=== PATIENT | female | born 1980 | race American Indian/Alaskan Native ===

== ENCOUNTER 2016-12-05 21:37 | Emergency (ER) | payer SELFPAY ==
[2016-12-06 01:56] VITALS: BP 148/88
--- NOTE | 2016-12-06 02:00 | XRay Report ---
FINAL REPORT EXAM: XR ANKLE 2V RT HISTORY: injury COMPARISON: None available. FINDINGS: Two views of right ankle obtained. Ankle mortise is preserved. Mild hypertrophic spurring of the distal tibia. There are small well corticated bony fragments adjacent to the medial malleolus compatible with remote avulsive injury. Small plantar calcaneal spur. No acute fracture dislocation. IMPRESSION: No acute bony abnormality. Mild degenerative changes likely posttraumatic in etiology. Small plantar calcaneal spur.
[2016-12-06] MEDS ORDERED: MOTRIN PO ONE (02:43)
[2016-12-06] MEDS ORDERED: FLEXERIL PO ONE (02:43)
--- NOTE | 2016-12-06 02:44 | Emergency Department Report ---
HPI - General Chief Complaint: Extremity Injury, Lower Time Seen by Provider: 12/06/16 01:44 - HPI HPI: Patient is a 35-year-old female who presents to ED complaining of right ankle pain 1 day. Patient states she was coming down some steps earlier today and tripped due to loss of her stepping and tripped down 3 or 4 steps. She numbness probably in, localized, 6 out of 10 intensity pain to the right ankle Patient denies fever/chills/nausea/vomiting/any other problems. ED Past Medical Hx - Past Medical History Hx Hypertension: Yes Hx Diabetes: Yes (oral meds) Hx Headaches / Migraines: Yes Hx Psychiatric Treatment: Yes (anxiety) Hx HIV: No Additional medical history: neuropathy, diabetic gastroparesis. ANEMIA. CARPAL TUNNEL. - Surgical History Additional Surgical History: D & C. LEFT GREAT TOE SURGERY - Social History Smoking Status: Current Every Day Smoker Substance Use Type: None - Medications Home Medications: Home Medications Medication Instructions Recorded Confirmed Last Taken Type Albuterol Sulfate [Ventolin HFA] 2 puff IH Q4H PRN #1 hfa.aer.ad 02/07/1403/13/15 Rx Ciprofloxacin HCl [Cipro] 500 mg PO BID #28 tablet 03/16/15 02/27/16 Unknown Rx Sulfamethoxazole/Trimethoprim 1 each PO BID #28 tablet 03/16/15 02/27/16 Unknown Rx [Bactrim Ds] oxyCODONE /ACETAMINOPHEN [Percocet 1 tab PO Q6H PRN #30 tablet 03/16/15 Unknown Rx 5/325 mg] Butalb/Acetamin/Caff 50-325-40 1 tab PO Q6HR PRN #30 tab 06/29/15 02/27/16 Unknown Rx [Fioricet] metFORMIN [Glucophage] 850 mg PO BID #60 tablet 06/29/15 02/27/16 Unknown Rx Docusate Sodium [Colace] 100 mg PO BID PRN #30 capsule 01/20/16 02/27/16 Unknown Rx Ferrous Sulfate [Feosol 325 MG tab] 325 mg PO QDAY #30 tablet 01/20/16 02/27/16 Unknown Rx HYDROcodone/APAP 5-325 [[place] 1 each PO Q6HR PRN #20 tablet 01/20/16 02/27/16 Unknown Rx 5/325] Ibuprofen [Motrin 800 MG tab] 800 mg PO Q8HR PRN #30 tablet 01/20/16 02/27/16 Unknown Rx Cephalexin [Keflex] 500 mg PO Q12HR #14 cap 04/20/16 Unknown Rx Sulfamethoxazole/Trimethoprim 1 each PO BID #14 tablet 04/20/16 Unknown Rx [Bactrim DS TAB] traMADol [Ultram] 50 mg PO Q4HR PRN #15 tablet 04/20/16 Unknown Rx Cyclobenzaprine [Flexeril 10 MG 10 mg PO QHS #24 tablet 12/06/16 Unknown Rx TAB] Ibuprofen [Motrin 800 MG tab] 800 mg PO TID #30 tablet 12/06/16 Unknown Rx ED Review of Systems ROS: Stated complaint: RT ANKLE PAIN/FALL Other details as noted in HPI Constitutional: denies: chills, fever Eyes: denies: eye pain, eye discharge, vision change ENT: denies: ear pain, throat pain Respiratory: denies: cough, shortness of breath, wheezing Cardiovascular: denies: chest pain, palpitations Endocrine: no symptoms reported Gastrointestinal: denies: abdominal pain, nausea, diarrhea Genitourinary: denies: urgency, dysuria, discharge Musculoskeletal: denies: back pain, joint swelling, arthralgia Skin: denies: rash, lesions Neurological: denies: headache, weakness, paresthesias Psychiatric: denies: anxiety, depression Hematological/Lymphatic: denies: easy bleeding, easy bruising Physical Exam - Physical Exam Vital Signs: Vital Signs 12/05/16 12/06/16 22:00 01:40 Temperature 98.6 F 97.9 F Pulse Rate 98 H 91 H Respiratory 18 18 Rate Blood Pressure 143/89 Blood Pressure 148/88 [Right] O2 Sat by Pulse 100 98 Oximetry Physical Exam: GENERAL: Alert and oriented x3, no apparent distress, Normal Gait, atraumatic. HEAD: Head is normocephalic and a-traumatic. EYES: Extra ocular muscles are intact. Pupils are equal, round, and reactive to light and accommodation. EARS: symetrical, atraumatic, non tender, gross auditory nml bilaterally. NOSE: Nose symetrical, Nontender,Nares appeared normal. MOUTH:Mouth is well hydrated and without lesions. Patent airways. NECK: Supple. Non edematous, No carotid bruits. No lymphadenopathy or thyromegaly. LUNGS: Symetrical with respiration, No wheezing, no rales or crackles, CTAB. HEART: S1, S2 present, regular rate and rhythm without murmur, no rubs, no gallops. ABDOMEN: No organomegaly was noted,Positive bowel sounds, soft, and non- distended. . Nontender to palpation on all Quadrants, NO CVA tenderness. EXTREMITIES/MUSCULOSKELETAL: No cyanosis, clubbing, rash, lesions or edema. Full ROM bilaterally. LE Pulses 2+ bilaterally. LE and UE 5+ strength bilaterally. Mild tenderness to palpation of the lateral aspect of right knee. Full range of motion. NEUROLOGIC: No focal Deficit, Cranial nerves II through XII are grossly intact. No loss of sensation, ED Course Vital Signs 12/05/16 12/06/16 22:00 01:40 Temperature 98.6 F 97.9 F Pulse Rate 98 H 91 H Respiratory 18 18 Rate Blood Pressure 143/89 Blood Pressure 148/88 [Right] O2 Sat by Pulse 100 98 Oximetry ED Medical Decision Making - Radiology Data Radiology results: report reviewed, image reviewed FINAL REPORT EXAM: XR ANKLE 2V RT HISTORY: injury COMPARISON: None available. FINDINGS: Two views of right ankle obtained. Ankle mortise is preserved. Mild hypertrophic spurring of the distal tibia. There are small well corticated bony fragments adjacent to the medial malleolus compatible with remote avulsive injury. Small plantar calcaneal spur. No acute fracture dislocation. IMPRESSION: No acute bony abnormality. Mild degenerative changes likely posttraumatic in etiology. Small plantar calcaneal spur. Transcribed By: LMA Dictated By: VINCE PADGETT MD Electronically Authenticated By: VINCE PADGETT MD Signed Date/Time: 12/06/16 0157 - Medical Decision Making 35-year-old female presents with right ankle pain secondary to fall, ED course: Patient received 800 mg of Motrin 10 mg of Flexeril. Ankle x-ray shows no dislocation no fracture or any acute injury see above Discussed findings with patient. Discussed the patient to rest ankle and keep it elevated for the next couple of days Discussed to follow up with primary care physician. Discussed to take medication as discussed in prescribed. Vital signs stable. Patient is in no acute or respiratory distress. She verbally understands and states to follow-up Critical care attestation.: If time is entered above; I have spent that time in minutes in the direct care of this critically ill patient, excluding procedure time. ED Disposition Clinical Impression: Fall Qualifiers: Encounter type: initial encounter Qualified Code(s): W19.XXXA - Unspecified fall, initial encounter Ankle pain, right Qualifiers: Chronicity: chronic Qualified Code(s): M25.571 - Pain in right ankle and joints of right foot; G89.29 - Other chronic pain Disposition: DISCHARGED TO HOME OR SELFCARE Is pt being admited?: No Does the pt Need Aspirin: No Condition: Stable Instructions: Arthralgia (ED), Ankle Exercises (GEN), Heat Pack Application (ED ) Prescriptions: Cyclobenzaprine [Flexeril 10 MG TAB] 10 mg PO QHS #24 tablet Ibuprofen [Motrin 800 MG tab] 800 mg PO TID #30 tablet Referrals: PRIMARY CAREMD [Primary Care Provider] - 3-5 Days VERITO PARRA MD [Referring] - 3-5 Days [facility] [Outside] - 3-5 Days [facility] [Outside] - 3-5 Days [facility] [Outside] - 3-5 Days Forms: Work/School Release Form(ED) Time of Disposition: 02:45
== END 2016-12-06 03:15 | disposition home or self-care (01) ==
LOC: ED 21:37
DX: M25.571 Pain in right ankle and joints of right foot (principal); I10 Essential (primary) hypertension; E11.9 Type 2 diabetes mellitus without complications; G43.909 Migraine, unspecified, not intractable, without status migrainosus; F41.9 Anxiety disorder, unspecified; D64.9 Anemia, unspecified; F17.200 Nicotine dependence, unspecified, uncomplicated; W10.9XXA Fall (on) (from) unspecified stairs and steps, initial encounter; Y93.89 Activity, other specified; Y99.9 Unspecified external cause status; Y92.89 Other specified places as the place of occurrence of the external cause
CPT/HCPCS: 81025

== ENCOUNTER 2017-01-24 12:34 | Emergency (ER) | payer SELFPAY ==
[2017-01-24 14:04] LABS: Bilirubin,Urine NEG (Negative); Blood,Urine NEG (Negative); Ketones,Urine TR mg/dL (Negative); Leukocyte Esterase,Urine NEG (Negative); Nitrite,Urine NEG (Negative); Urobilinogen,Urine < 2.0 mg/dL (<2.0); WBC,Urine < 1.0 /HPF (0.0-6.0)
[2017-01-24 14:31] LABS: Basophils % (Auto) 0.5 % (0.0-1.8); Mean Corpuscular HGB Conc 29 % (30-34); Platelet Count 514 K/mm3 (140-440); Red Blood Count 4.77 M/mm3 (3.65-5.03)
[2017-01-24 14:37] LABS: Hematocrit 28.2 % (30.3-42.9); Hemoglobin 8.2 gm/dl (10.1-14.3); Mean Corpuscular Hemoglobin 17 pg (28-32); Mean Corpuscular Volume 59 fl (79-97); Red Cell Distribution Width 20.2 % (13.2-15.2)
[2017-01-24 14:42] LABS: Alanine Aminotransferase 13 units/L (7-56); Albumin 4.2 g/dL (3.9-5); Albumin/Globulin Ratio 1.3 %; Anion Gap 19 mmol/L; BUN/Creatinine Ratio 12.85; Bilirubin,Total < 0.20 mg/dL (0.1-1.2); Blood Urea Nitrogen 9 mg/dL (7-17); Calcium 10.3 mg/dL (8.4-10.2); Carbon Dioxide 24 mmol/L (22-30); Chloride 94.7 mmol/L (98-107); Glucose 226 mg/dL (65-100); Lipase 35 units/L (13-60); Potassium 4.3 mmol/L (3.6-5.0); Sodium 133 mmol/L (137-145); Total Protein 7.5 g/dL (6.3-8.2)
[2017-01-24 14:48] LABS: Alkaline Phosphatase 97 units/L (35-129)
[2017-01-24] MEDS ORDERED: NACL 0.9% 1000 ML 1,000 ML IV ONE (18:42)
--- NOTE | 2017-01-24 19:29 | Emergency Department Report ---
ED Abdominal Pain HPI - General Chief Complaint: Abdominal Pain Stated Complaint: BODY PAIN/EMESIS Time Seen by Provider: 01/24/17 17:42 Source: patient Mode of arrival: Ambulatory Limitations: No Limitations - History of Present Illness MD Complaint: abdominal pain -: Gradual Location: diffuse Radiation: none Migration to: no migration Severity: mild Quality: cramping Consistency: intermittent Improves With: nothing Worsens With: nothing Associated Symptoms: denies: nausea, vomiting, diarrhea, fever, constipation, dysuria - Related Data Previous Rx's Medication Instructions Recorded Last Taken Type Ciprofloxacin HCl [Cipro] 500 mg PO BID #28 tablet 03/16/15 Unknown Rx Sulfamethoxazole/Trimethoprim 1 each PO BID #28 tablet 03/16/15 Unknown Rx [Bactrim Ds] oxyCODONE /ACETAMINOPHEN [Percocet 1 tab PO Q6H PRN #30 tablet 03/16/15 Unknown Rx 5/325 mg] HYDROcodone/APAP 5-325 [[place] 1 each PO Q6HR PRN #20 tablet 01/20/16 Unknown Rx 5/325] Ibuprofen [Motrin 800 MG tab] 800 mg PO Q8HR PRN #30 tablet 01/20/16 Unknown Rx Cephalexin [Keflex] 500 mg PO Q12HR #14 cap 04/20/16 Unknown Rx Sulfamethoxazole/Trimethoprim 1 each PO BID #14 tablet 04/20/16 Unknown Rx [Bactrim DS TAB] traMADol [Ultram] 50 mg PO Q4HR PRN #15 tablet 04/20/16 Unknown Rx Albuterol Sulfate [Ventolin HFA] 2 puff IH Q4H PRN #1 hfa.aer.ad 01/24/17 Unknown Rx Butalb/Acetamin/Caff 50-325-40 1 tab PO Q6HR PRN #15 tab 01/24/17 Unknown Rx [Fioricet] Cyclobenzaprine [Flexeril 10 MG 10 mg PO QHS #24 tablet 01/24/17 Unknown Rx TAB] Docusate Sodium [Colace CAP] 100 mg PO BID PRN #30 capsule 01/24/17 Unknown Rx Ferrous Sulfate [Feosol 325 MG tab] 325 mg PO QDAY #30 tablet 01/24/17 Unknown Rx Ibuprofen [Motrin 800 MG tab] 800 mg PO TID #30 tablet 01/24/17 Unknown Rx metFORMIN [Glucophage] 850 mg PO BID #60 tablet 01/24/17 Unknown Rx Allergies Allergy/AdvReac Type Severity Reaction Status Date / Time aspirin Allergy Rash Verified 03/13/15 11:42 ED Review of Systems ROS: Stated complaint: BODY PAIN/EMESIS Other details as noted in HPI Constitutional: denies: chills, fever Eyes: denies: eye pain, eye discharge, vision change ENT: denies: ear pain, throat pain Respiratory: denies: cough, shortness of breath, wheezing Cardiovascular: denies: chest pain, palpitations Endocrine: no symptoms reported Gastrointestinal: denies: abdominal pain, nausea, diarrhea Genitourinary: denies: urgency, dysuria, discharge Musculoskeletal: denies: back pain, joint swelling, arthralgia Skin: denies: rash, lesions Neurological: denies: headache, weakness, paresthesias Psychiatric: denies: anxiety, depression Hematological/Lymphatic: denies: easy bleeding, easy bruising ED Past Medical Hx - Past Medical History Previous Medical History?: Yes Hx Hypertension: Yes Hx Diabetes: Yes (oral meds) Hx Headaches / Migraines: Yes Hx Psychiatric Treatment: Yes (anxiety) Hx HIV: No Additional medical history: neuropathy, diabetic gastroparesis. ANEMIA. CARPAL TUNNEL. - Surgical History Past Surgical History?: Yes Additional Surgical History: D & C. LEFT GREAT TOE SURGERY - Social History Smoking Status: Current Every Day Smoker Substance Use Type: None - Medications Home Medications: Home Medications Medication Instructions Recorded Confirmed Last Taken Type Ciprofloxacin HCl [Cipro] 500 mg PO BID #28 tablet 03/16/15 02/27/16 Unknown Rx Sulfamethoxazole/Trimethoprim 1 each PO BID #28 tablet 03/16/15 02/27/16 Unknown Rx [Bactrim Ds] oxyCODONE /ACETAMINOPHEN [Percocet 1 tab PO Q6H PRN #30 tablet 03/16/15 Unknown Rx 5/325 mg] HYDROcodone/APAP 5-325 [[place] 1 each PO Q6HR PRN #20 tablet 01/20/16 02/27/16 Unknown Rx 5/325] Ibuprofen [Motrin 800 MG tab] 800 mg PO Q8HR PRN #30 tablet 01/20/16 02/27/16 Unknown Rx Cephalexin [Keflex] 500 mg PO Q12HR #14 cap 04/20/16 Unknown Rx Sulfamethoxazole/Trimethoprim 1 each PO BID #14 tablet 04/20/16 Unknown Rx [Bactrim DS TAB] traMADol [Ultram] 50 mg PO Q4HR PRN #15 tablet 04/20/16 Unknown Rx Albuterol Sulfate [Ventolin HFA] 2 puff IH Q4H PRN #1 hfa.aer.ad 01/24/17 Unknown Rx Butalb/Acetamin/Caff 50-325-40 1 tab PO Q6HR PRN #15 tab 01/24/17 Unknown Rx [Fioricet] Cyclobenzaprine [Flexeril 10 MG 10 mg PO QHS #24 tablet 01/24/17 Unknown Rx TAB] Docusate Sodium [Colace CAP] 100 mg PO BID PRN #30 capsule 01/24/17 Unknown Rx Ferrous Sulfate [Feosol 325 MG tab] 325 mg PO QDAY #30 tablet 01/24/17 Unknown Rx Ibuprofen [Motrin 800 MG tab] 800 mg PO TID #30 tablet 01/24/17 Unknown Rx metFORMIN [Glucophage] 850 mg PO BID #60 tablet 01/24/17 Unknown Rx ED Physical Exam - General Limitations: No Limitations General appearance: alert, in no apparent distress - Head Head exam: Present: atraumatic, normocephalic - Eye Eye exam: Present: normal appearance - ENT ENT exam: Present: mucous membranes moist - Neck Neck exam: Present: normal inspection - Respiratory Respiratory exam: Present: normal lung sounds bilaterally. Absent: respiratory distress - Cardiovascular Cardiovascular Exam: Present: regular rate, normal rhythm. Absent: systolic murmur, diastolic murmur, rubs, gallop - GI/Abdominal GI/Abdominal exam: Present: soft, normal bowel sounds - Extremities Exam Extremities exam: Present: normal inspection - Back Exam Back exam: Present: normal inspection - Neurological Exam Neurological exam: Present: alert, oriented X3 - Psychiatric Psychiatric exam: Present: normal affect, normal mood - Skin Skin exam: Present: warm, dry, intact, normal color. Absent: rash ED Course Vital Signs 01/24/17 01/24/17 13:01 19:07 Temperature 98.7 F Pulse Rate 98 H Respiratory 16 18 Rate Blood Pressure 138/82 O2 Sat by Pulse 100 Oximetry ED Medical Decision Making - Lab Data Result diagrams: 01/24/17 13:57 01/24/17 13:57 - Radiology Data Radiology results: report reviewed, image reviewed - Medical Decision Making patient doing well, labs negative , kub negative, feeling better after ivf , will refill her meds and discharge home. Critical care attestation.: If time is entered above; I have spent that time in minutes in the direct care of this critically ill patient, excluding procedure time. ED Disposition Clinical Impression: Abdominal pain Disposition: DISCHARGED TO HOME OR SELFCARE Is pt being admited?: No Does the pt Need Aspirin: No Condition: Good Instructions: Abdominal Pain (ED) Prescriptions: Cyclobenzaprine [Flexeril 10 MG TAB] 10 mg PO QHS #24 tablet Albuterol Sulfate [Ventolin HFA] 2 puff IH Q4H PRN #1 hfa.aer.ad PRN Reason: Shortness Of Breath Butalb/Acetamin/Caff 50-325-40 [Fioricet] 1 tab PO Q6HR PRN #15 tab PRN Reason: Headache Docusate Sodium [Colace CAP] 100 mg PO BID PRN #30 capsule PRN Reason: Constipation Ferrous Sulfate [Feosol 325 MG tab] 325 mg PO QDAY #30 tablet Ibuprofen [Motrin 800 MG tab] 800 mg PO TID #30 tablet metFORMIN [Glucophage] 850 mg PO BID #60 tablet Referrals: PRIMARY CARE, [Primary Care Provider] - 3-5 Days Time of Disposition: 19:32
[2017-01-24 19:51] VITALS: BP 140/95
--- NOTE | 2017-01-25 08:39 | XRay Report ---
ABDOMEN RADIOGRAPHS INDICATION: Abdominal pain. COMPARISON: 02/27/2016 FINDINGS: Frontal abdominal radiographs demonstrate nonobstructive bowel gas pattern. Ascending colon stool. No focal suspicious calcifications, pneumatosis or pneumoperitoneum. Clear visualized lung bases. Right hemidiaphragm slightly elevated. Mild mid to lower lumbar degenerative changes. CONCLUSION: No acute abdominal radiographic abnormality, as described. Thank you for the opportunity to participate in this patient's care.
== END 2017-01-24 20:22 | disposition home or self-care (01) ==
LOC: ED 12:34
DX: R10.9 Unspecified abdominal pain (principal); I10 Essential (primary) hypertension; E11.9 Type 2 diabetes mellitus without complications; G43.909 Migraine, unspecified, not intractable, without status migrainosus; F41.9 Anxiety disorder, unspecified; D64.9 Anemia, unspecified; F17.200 Nicotine dependence, unspecified, uncomplicated; Z88.6 Allergy status to analgesic agent
CPT/HCPCS: 36415; 74020; 80053; 81001; 83690; 85025; 96360; 99284; J7030

== ENCOUNTER 2017-03-19 19:59 | Emergency (ER) | payer SELFPAY ==
[2017-03-19 20:55] LABS: Basophils % (Auto) 0.3 % (0.0-1.8); Eosinophils % (Auto) 2.9 % (0.0-4.3); Hematocrit 25.6 % (30.3-42.9); Hemoglobin 7.5 gm/dl (10.1-14.3); Mean Corpuscular HGB Conc 30 % (30-34); Platelet Count 449 K/mm3 (140-440); Red Blood Count 4.49 M/mm3 (3.65-5.03); White Blood Count 9.3 K/mm3 (4.5-11.0)
[2017-03-19 20:56] LABS: Mean Corpuscular Hemoglobin 17 pg (28-32); Mean Corpuscular Volume 57 fl (79-97); Red Cell Distribution Width 20.7 % (13.2-15.2)
[2017-03-19 21:02] LABS: Bilirubin,Urine NEG (Negative); Blood,Urine NEG (Negative); Ketones,Urine NEG (Negative); Leukocyte Esterase,Urine NEG (Negative); Mucus,Urine FEW /HPF; Nitrite,Urine NEG (Negative); Urobilinogen,Urine < 2.0 mg/dL (<2.0); WBC,Urine < 1.0 /HPF (0.0-6.0)
[2017-03-19 21:06] LABS: Alanine Aminotransferase 12 units/L (7-56); Albumin 4.1 g/dL (3.9-5); Albumin/Globulin Ratio 1.1 %; Alkaline Phosphatase 100 units/L (35-129); Anion Gap 19 mmol/L; BUN/Creatinine Ratio 11.42; Bilirubin,Total < 0.20 mg/dL (0.1-1.2); Blood Urea Nitrogen 8 mg/dL (7-17); Calcium 9.7 mg/dL (8.4-10.2); Carbon Dioxide 25 mmol/L (22-30); Chloride 96.8 mmol/L (98-107); Glucose 295 mg/dL (65-100); Lipase 31 units/L (13-60); Potassium 4.2 mmol/L (3.6-5.0); Sodium 137 mmol/L (137-145); Total Protein 7.9 g/dL (6.3-8.2)
[2017-03-19] MEDS ORDERED: NACL 0.9% 1000 ML 1,000 ML IV ONE (22:35)
[2017-03-19] MEDS ORDERED: BENTYL IM ONE (22:35)
[2017-03-19] MEDS ORDERED: ALUM-MAG HYDROX-SIMETH 200-200-20MG/5ML PO ONE (22:36)
[2017-03-19] MEDS ORDERED: LIDOCAINE VISCOUS 2% PO ONE (22:36)
[2017-03-19 23:14] VITALS: BP 137/88
--- NOTE | 2017-03-20 00:56 | Emergency Department Report ---
ED Abdominal Pain HPI - General Chief Complaint: Abdominal Pain Stated Complaint: ABD PAIN, FREQUENT URINE, FATIUGE Time Seen by Provider: 03/19/17 22:34 Source: patient Mode of arrival: Ambulatory Limitations: No Limitations - History of Present Illness Initial Comments: 36-year-old female with past medical history of diabetes, HIV, gastroparesis presenting to the emergency room complaining of left upper quadrant pain. Patient states pain started 1 day prior to ED arrival. No inciting factors. Patient states pain is cramping sensation, patient has no relaxing or worsening factors. Patient states pain is accompanied by nausea. Pt denies: fever/chills , chest pain, bloody stools, vomiting/diarrhea. MD Complaint: abdominal pain -: Gradual, days(s) (1) Location: LUQ Radiation: none Migration to: no migration Severity scale (0 -10): 3 Quality: cramping Consistency: intermittent Improves With: nothing Worsens With: nothing Associated Symptoms: nausea. denies: vomiting, diarrhea, constipation, dysuria , melena, hematuria - Related Data Previous Rx's Medication Instructions Recorded Last Taken Type Ciprofloxacin HCl [Cipro] 500 mg PO BID #28 tablet 03/16/15 Unknown Rx Sulfamethoxazole/Trimethoprim 1 each PO BID #28 tablet 03/16/15 Unknown Rx [Bactrim Ds] oxyCODONE /ACETAMINOPHEN [Percocet 1 tab PO Q6H PRN #30 tablet 03/16/15 Unknown Rx 5/325 mg] HYDROcodone/APAP 5-325 [[place] 1 each PO Q6HR PRN #20 tablet 01/20/16 Unknown Rx 5/325] Ibuprofen [Motrin 800 MG tab] 800 mg PO Q8HR PRN #30 tablet 01/20/16 Unknown Rx Cephalexin [Keflex] 500 mg PO Q12HR #14 cap 04/20/16 Unknown Rx Sulfamethoxazole/Trimethoprim 1 each PO BID #14 tablet 04/20/16 Unknown Rx [Bactrim DS TAB] traMADol [Ultram] 50 mg PO Q4HR PRN #15 tablet 04/20/16 Unknown Rx Albuterol Sulfate [Ventolin HFA] 2 puff IH Q4H PRN #1 hfa.aer.ad 01/24/17 Unknown Rx Butalb/Acetamin/Caff 50-325-40 1 tab PO Q6HR PRN #15 tab 01/24/17 Unknown Rx [Fioricet] Cyclobenzaprine [Flexeril 10 MG 10 mg PO QHS #24 tablet 01/24/17 Unknown Rx TAB] Docusate Sodium [Colace CAP] 100 mg PO BID PRN #30 capsule 01/24/17 Unknown Rx Ferrous Sulfate [Feosol 325 MG tab] 325 mg PO QDAY #30 tablet 01/24/17 Unknown Rx Ibuprofen [Motrin 800 MG tab] 800 mg PO TID #30 tablet 01/24/17 Unknown Rx metFORMIN [Glucophage] 850 mg PO BID #60 tablet 01/24/17 Unknown Rx Dicyclomine [Bentyl] 20 mg PO QID #30 bottle 03/20/17 Unknown Rx Famotidine [Pepcid] 20 mg PO BID #20 tablet 03/20/17 Unknown Rx Allergies Allergy/AdvReac Type Severity Reaction Status Date / Time aspirin Allergy Rash Verified 03/13/15 11:42 ED Review of Systems ROS: Stated complaint: ABD PAIN, FREQUENT URINE, FATIUGE Other details as noted in HPI Constitutional: denies: chills, fever Eyes: denies: eye pain, eye discharge, vision change ENT: denies: ear pain, throat pain Respiratory: denies: cough, shortness of breath, wheezing Cardiovascular: denies: chest pain, palpitations Endocrine: no symptoms reported Gastrointestinal: abdominal pain, nausea. denies: vomiting, diarrhea, constipation, hematemesis, hematochezia Genitourinary: denies: urgency, dysuria, discharge Musculoskeletal: denies: back pain, joint swelling, arthralgia Skin: denies: rash, lesions Neurological: denies: headache, weakness, paresthesias Psychiatric: denies: anxiety, depression Hematological/Lymphatic: denies: easy bleeding, easy bruising ED Past Medical Hx - Past Medical History Hx Hypertension: Yes Hx Diabetes: Yes (oral meds) Hx Headaches / Migraines: Yes Hx Psychiatric Treatment: Yes (anxiety) Hx HIV: No Additional medical history: neuropathy, diabetic gastroparesis. ANEMIA. CARPAL TUNNEL. - Surgical History Additional Surgical History: D & C. LEFT GREAT TOE SURGERY - Social History Smoking Status: Current Some Day Smoker Substance Use Type: None - Medications Home Medications: Home Medications Medication Instructions Recorded Confirmed Last Taken Type Ciprofloxacin HCl [Cipro] 500 mg PO BID #28 tablet 03/16/15 02/27/16 Unknown Rx Sulfamethoxazole/Trimethoprim 1 each PO BID #28 tablet 03/16/15 02/27/16 Unknown Rx [Bactrim Ds] oxyCODONE /ACETAMINOPHEN [Percocet 1 tab PO Q6H PRN #30 tablet 03/16/15 Unknown Rx 5/325 mg] HYDROcodone/APAP 5-325 [[place] 1 each PO Q6HR PRN #20 tablet 01/20/16 02/27/16 Unknown Rx 5/325] Ibuprofen [Motrin 800 MG tab] 800 mg PO Q8HR PRN #30 tablet 01/20/16 02/27/16 Unknown Rx Cephalexin [Keflex] 500 mg PO Q12HR #14 cap 04/20/16 Unknown Rx Sulfamethoxazole/Trimethoprim 1 each PO BID #14 tablet 04/20/16 Unknown Rx [Bactrim DS TAB] traMADol [Ultram] 50 mg PO Q4HR PRN #15 tablet 04/20/16 Unknown Rx Albuterol Sulfate [Ventolin HFA] 2 puff IH Q4H PRN #1 hfa.aer.ad 01/24/17 Unknown Rx Butalb/Acetamin/Caff 50-325-40 1 tab PO Q6HR PRN #15 tab 01/24/17 Unknown Rx [Fioricet] Cyclobenzaprine [Flexeril 10 MG 10 mg PO QHS #24 tablet 01/24/17 Unknown Rx TAB] Docusate Sodium [Colace CAP] 100 mg PO BID PRN #30 capsule 01/24/17 Unknown Rx Ferrous Sulfate [Feosol 325 MG tab] 325 mg PO QDAY #30 tablet 01/24/17 Unknown Rx Ibuprofen [Motrin 800 MG tab] 800 mg PO TID #30 tablet 01/24/17 Unknown Rx metFORMIN [Glucophage] 850 mg PO BID #60 tablet 01/24/17 Unknown Rx Dicyclomine [Bentyl] 20 mg PO QID #30 bottle 03/20/17 Unknown Rx Famotidine [Pepcid] 20 mg PO BID #20 tablet 03/20/17 Unknown Rx ED Physical Exam - General Limitations: No Limitations General appearance: alert, in no apparent distress - Head Head exam: Present: atraumatic, normocephalic - Eye Eye exam: Present: normal appearance - ENT ENT exam: Present: mucous membranes moist - Neck Neck exam: Present: normal inspection - Respiratory Respiratory exam: Present: normal lung sounds bilaterally. Absent: respiratory distress - Cardiovascular Cardiovascular Exam: Present: regular rate, normal rhythm. Absent: systolic murmur, diastolic murmur, rubs, gallop - GI/Abdominal GI/Abdominal exam: Present: soft, normal bowel sounds, other (abdomen soft, non tender ). Absent: distended, tenderness, guarding - Extremities Exam Extremities exam: Present: normal inspection - Back Exam Back exam: Present: normal inspection - Neurological Exam Neurological exam: Present: alert, oriented X3 - Psychiatric Psychiatric exam: Present: normal affect, normal mood - Skin Skin exam: Present: warm, dry, intact, normal color. Absent: rash ED Course Vital Signs 03/19/17 03/19/17 03/19/17 20:06 22:10 22:34 Temperature 98.6 F 99.0 F 99 F Pulse Rate 102 H 94 H 94 H Respiratory 20 20 20 Rate Blood Pressure 164/104 Blood Pressure 145/108 147/88 [Right] O2 Sat by Pulse 100 100 100 Oximetry 03/19/17 23:12 Temperature Pulse Rate 90 Respiratory 18 Rate Blood Pressure Blood Pressure 137/88 [Right] O2 Sat by Pulse 100 Oximetry - Reevaluation(s) Reevaluation #1: 03/20/17 00:56 pt tolerating po, agrees she is stable to dc home ED Medical Decision Making - Lab Data Result diagrams: 03/19/17 20:38 03/19/17 20:38 - EKG Data -: EKG Interpreted by Me EKG shows normal: axis (normal ), intervals (QRS: 80), QRS complexes (qrs: 80) Rate: normal (90) - EKG Data Interpretation: no acute changes - Radiology Data Radiology results: image reviewed interpreted by me: No acute findings. No evidence of air-fluid levels. No air into the diaphragm. - Medical Decision Making A 36-year-old female with past medical history diabetes, hypertension, gastroparesis presenting to the emergency room complaining of abdominal pain. Likely pain secondary to gastritis. I have low suspicion for acute abdomen. Low suspicion for:appendicitis, cholecystitis, pancreatitis, or perforated ulcer. Patient is well-appearing tolerating liquid and solids by mout. Repeat abdomen abdominal exam is soft nontender. Patient agrees she is stable to discharge home. She'll follow up with PCP. Patient verbalized understanding of return precautions. Critical Care Time: No Critical care attestation.: If time is entered above; I have spent that time in minutes in the direct care of this critically ill patient, excluding procedure time. ED Disposition Clinical Impression: Gastritis, Abdominal pain Disposition: - TO HOME OR SELFCARE Is pt being admited?: No Does the pt Need Aspirin: No Condition: Stable Instructions: Abdominal Pain (ED) Prescriptions: Dicyclomine [Bentyl] 20 mg PO QID #30 bottle Famotidine [Pepcid] 20 mg PO BID #20 tablet Referrals: PRIMARY CAREMD [Primary Care Provider] - 2-3 Days PHAM LYONS MD [Staff Physician] - 2-3 Days Forms: Work/School Release Form(ED) Time of Disposition: 01:01
--- NOTE | 2017-03-20 09:25 | XRay Report ---
Abdominal series: History: Abdominal pain. Findings: No acute cardiopulmonary changes. No free intraperitoneal. No bowel distention or wall thickening. Stool in colon. No radiopaque calculus or abnormal calcification or fluid levels. Impression: Essentially negative study.
== END 2017-03-20 01:36 | disposition home or self-care (01) ==
LOC: ED 19:59
DX: K29.70 Gastritis, unspecified, without bleeding (principal); I10 Essential (primary) hypertension; G43.909 Migraine, unspecified, not intractable, without status migrainosus; F41.9 Anxiety disorder, unspecified; E11.43 Type 2 diabetes mellitus with diabetic autonomic (poly)neuropathy; K31.84 Gastroparesis; D64.9 Anemia, unspecified; Z72.0 Tobacco use; Z88.6 Allergy status to analgesic agent
CPT/HCPCS: 36415; 74022; 80053; 81001; 83690; 84703; 85025; 93005; 93010; 96361; 96372; 96374; 99284; J0500; J7030; J1815

== ENCOUNTER 2017-03-22 06:40 | Emergency (ER) | payer OTHER ==
[2017-03-22 07:44] LABS: Basophils % (Auto) 0.5 % (0.0-1.8); Eosinophils % (Auto) 2.2 % (0.0-4.3); Hematocrit 26.2 % (30.3-42.9); Hemoglobin 7.9 gm/dl (10.1-14.3); Mean Corpuscular HGB Conc 30 % (30-34); Platelet Count 467 K/mm3 (140-440); Red Blood Count 4.55 M/mm3 (3.65-5.03); White Blood Count 8.9 K/mm3 (4.5-11.0)
[2017-03-22 07:47] LABS: Mean Corpuscular Hemoglobin 17 pg (28-32); Mean Corpuscular Volume 58 fl (79-97); Red Cell Distribution Width 20.1 % (13.2-15.2)
[2017-03-22 08:00] LABS: Alanine Aminotransferase 11 units/L (7-56); Albumin 3.8 g/dL (3.9-5); Alkaline Phosphatase 121 units/L (35-129); Anion Gap 21 mmol/L; BUN/Creatinine Ratio 15.71; Bilirubin,Total < 0.20 mg/dL (0.1-1.2); Blood Urea Nitrogen 11 mg/dL (7-17); Calcium 9.4 mg/dL (8.4-10.2); Carbon Dioxide 22 mmol/L (22-30); Chloride 94.7 mmol/L (98-107); Glucose 368 mg/dL (65-100); Lipase 31 units/L (13-60); Potassium 4.3 mmol/L (3.6-5.0); Sodium 133 mmol/L (137-145); Total Protein 7.6 g/dL (6.3-8.2)
[2017-03-22 08:18] LABS: Bilirubin,Urine NEG (Negative); Blood,Urine NEG (Negative); Ketones,Urine TR mg/dL (Negative); Leukocyte Esterase,Urine NEG (Negative); Nitrite,Urine NEG (Negative); Urobilinogen,Urine < 2.0 mg/dL (<2.0); WBC,Urine < 1.0 /HPF (0.0-6.0)
--- NOTE | 2017-03-22 13:38 | Emergency Department Report ---
ED General Adult HPI - General Chief complaint: Abdominal Pain Stated complaint: L SIDE ABD PAIN Time Seen by Provider: 03/22/17 13:35 Source: patient Mode of arrival: Ambulatory Limitations: No Limitations - History of Present Illness Initial comments: Patient complains of left lower quadrant pain. She states she has a "pocket" there. She states it is not a gas pocket. She is a very vague historian. This is her second emergency department visit this week for similar complaints. She has chronic anemia and has been previously diagnosed as having fibroid tumors. She has dysfunctional uterine bleeding and menorrhagia. She does not take supplemental iron. She was found to be anemic several times here in the past. 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 She does not have any current vaginal bleeding. Her test is negative again today. She states that she has never been specifically diagnosed with any abdominal issue other than the fibroids. Apparently she has had CT examinations here in 2013 which demonstrated hyperdense lesions in the liver which were thought to be benign. Patient denies any recent fever or chills. She admits to slight nausea but no vomiting or diarrhea. She denies any type symptoms. -: days(s) Location: abdomen Radiation: non-radiation Quality: aching Consistency: intermittent Improves with: none Worsens with: none Associated Symptoms: denies other symptoms - Related Data Previous Rx's Medication Instructions Recorded Last Taken Type Ciprofloxacin HCl [Cipro] 500 mg PO BID #28 tablet 03/16/15 Unknown Rx Sulfamethoxazole/Trimethoprim 1 each PO BID #28 tablet 03/16/15 Unknown Rx [Bactrim Ds] oxyCODONE /ACETAMINOPHEN [Percocet 1 tab PO Q6H PRN #30 tablet 03/16/15 Unknown Rx 5/325 mg] HYDROcodone/APAP 5-325 [[place] 1 each PO Q6HR PRN #20 tablet 01/20/16 Unknown Rx 5/325] Ibuprofen [Motrin 800 MG tab] 800 mg PO Q8HR PRN #30 tablet 01/20/16 Unknown Rx Cephalexin [Keflex] 500 mg PO Q12HR #14 cap 04/20/16 Unknown Rx Sulfamethoxazole/Trimethoprim 1 each PO BID #14 tablet 04/20/16 Unknown Rx [Bactrim DS TAB] traMADol [Ultram] 50 mg PO Q4HR PRN #15 tablet 04/20/16 Unknown Rx Albuterol Sulfate [Ventolin HFA] 2 puff IH Q4H PRN #1 hfa.aer.ad 01/24/17 Unknown Rx Butalb/Acetamin/Caff 50-325-40 1 tab PO Q6HR PRN #15 tab 01/24/17 Unknown Rx [Fioricet] Cyclobenzaprine [Flexeril 10 MG 10 mg PO QHS #24 tablet 01/24/17 Unknown Rx TAB] Docusate Sodium [Colace CAP] 100 mg PO BID PRN #30 capsule 01/24/17 Unknown Rx Ferrous Sulfate [Feosol 325 MG tab] 325 mg PO QDAY #30 tablet 01/24/17 Unknown Rx Ibuprofen [Motrin 800 MG tab] 800 mg PO TID #30 tablet 01/24/17 Unknown Rx metFORMIN [Glucophage] 850 mg PO BID #60 tablet 01/24/17 Unknown Rx Dicyclomine [Bentyl] 20 mg PO QID #30 bottle 03/20/17 Unknown Rx Famotidine [Pepcid] 20 mg PO BID #20 tablet 03/20/17 Unknown Rx Ferrous Gluconate [Fergon 325 MG 325 mg PO TID #20 tablet 03/22/17 Unknown Rx tab] Metformin HCl [Glucophage] 850 mg PO BID #60 tablet 03/22/17 Unknown Rx Ondansetron [Zofran Odt] 4 mg PO Q6H PRN #10 tab.rapdis 03/22/17 Unknown Rx traMADol [Ultram] 50 mg PO Q6HR PRN #14 tablet 03/22/17 Unknown Rx Allergies Allergy/AdvReac Type Severity Reaction Status Date / Time aspirin Allergy Rash Verified 03/13/15 11:42 ED Review of Systems ROS: Stated complaint: L SIDE ABD PAIN Other details as noted in HPI Constitutional: denies: chills, fever Eyes: denies: eye pain, eye discharge, vision change ENT: denies: ear pain, throat pain Respiratory: denies: cough, shortness of breath, wheezing Cardiovascular: denies: chest pain, palpitations Endocrine: no symptoms reported Gastrointestinal: abdominal pain, nausea. denies: diarrhea Genitourinary: denies: urgency, dysuria, discharge Musculoskeletal: denies: back pain, joint swelling, arthralgia Skin: denies: rash, lesions Neurological: denies: headache, weakness, paresthesias Psychiatric: denies: anxiety, depression Hematological/Lymphatic: denies: easy bleeding, easy bruising ED Past Medical Hx - Past Medical History Previous Medical History?: Yes Hx Hypertension: Yes Hx Diabetes: Yes (oral meds) Hx Headaches / Migraines: Yes Hx Psychiatric Treatment: Yes (anxiety) Hx HIV: No Additional medical history: neuropathy, diabetic gastroparesis. ANEMIA. CARPAL TUNNEL. - Surgical History Past Surgical History?: Yes Additional Surgical History: D & C. LEFT GREAT TOE SURGERY - Social History Smoking Status: Current Every Day Smoker Substance Use Type: Alcohol, Prescribed - Medications Home Medications: Home Medications Medication Instructions Recorded Confirmed Last Taken Type Ciprofloxacin HCl [Cipro] 500 mg PO BID #28 tablet 03/16/15 02/27/16 Unknown Rx Sulfamethoxazole/Trimethoprim 1 each PO BID #28 tablet 03/16/15 02/27/16 Unknown Rx [Bactrim Ds] oxyCODONE /ACETAMINOPHEN [Percocet 1 tab PO Q6H PRN #30 tablet 03/16/15 Unknown Rx 5/325 mg] HYDROcodone/APAP 5-325 [[place] 1 each PO Q6HR PRN #20 tablet 01/20/16 02/27/16 Unknown Rx 5/325] Ibuprofen [Motrin 800 MG tab] 800 mg PO Q8HR PRN #30 tablet 01/20/16 02/27/16 Unknown Rx Cephalexin [Keflex] 500 mg PO Q12HR #14 cap 04/20/16 Unknown Rx Sulfamethoxazole/Trimethoprim 1 each PO BID #14 tablet 04/20/16 Unknown Rx [Bactrim DS TAB] traMADol [Ultram] 50 mg PO Q4HR PRN #15 tablet 04/20/16 Unknown Rx Albuterol Sulfate [Ventolin HFA] 2 puff IH Q4H PRN #1 hfa.aer.ad 01/24/17 Unknown Rx Butalb/Acetamin/Caff 50-325-40 1 tab PO Q6HR PRN #15 tab 01/24/17 Unknown Rx [Fioricet] Cyclobenzaprine [Flexeril 10 MG 10 mg PO QHS #24 tablet 01/24/17 Unknown Rx TAB] Docusate Sodium [Colace CAP] 100 mg PO BID PRN #30 capsule 01/24/17 Unknown Rx Ferrous Sulfate [Feosol 325 MG tab] 325 mg PO QDAY #30 tablet 01/24/17 Unknown Rx Ibuprofen [Motrin 800 MG tab] 800 mg PO TID #30 tablet 01/24/17 Unknown Rx metFORMIN [Glucophage] 850 mg PO BID #60 tablet 01/24/17 Unknown Rx Dicyclomine [Bentyl] 20 mg PO QID #30 bottle 03/20/17 Unknown Rx Famotidine [Pepcid] 20 mg PO BID #20 tablet 03/20/17 Unknown Rx Ferrous Gluconate [Fergon 325 MG 325 mg PO TID #20 tablet 03/22/17 Unknown Rx tab] Metformin HCl [Glucophage] 850 mg PO BID #60 tablet 03/22/17 Unknown Rx Ondansetron [Zofran Odt] 4 mg PO Q6H PRN #10 tab.rapdis 03/22/17 Unknown Rx traMADol [Ultram] 50 mg PO Q6HR PRN #14 tablet 03/22/17 Unknown Rx ED Physical Exam - General Limitations: No Limitations General appearance: alert, in no apparent distress - Head Head exam: Present: atraumatic, normocephalic - Eye Eye exam: Present: normal appearance, PERRL, EOMI. Absent: scleral icterus - ENT ENT exam: Present: normal exam, mucous membranes moist - Neck Neck exam: Present: normal inspection. Absent: tenderness, meningismus - Respiratory Respiratory exam: Present: normal lung sounds bilaterally. Absent: respiratory distress - Cardiovascular Cardiovascular Exam: Present: regular rate, normal rhythm. Absent: systolic murmur, diastolic murmur, rubs, gallop - GI/Abdominal GI/Abdominal exam: Present: soft, normal bowel sounds. Absent: distended, tenderness, guarding, rebound, rigid, organomegaly, mass, bruit, pulsatile mass , hernia - Extremities Exam Extremities exam: Present: normal inspection - Back Exam Back exam: Present: normal inspection - Neurological Exam Neurological exam: Present: alert, oriented X3, CN II-XII intact. Absent: motor sensory deficit - Psychiatric Psychiatric exam: Present: normal affect, normal mood - Skin Skin exam: Present: warm, dry, intact, normal color. Absent: rash ED Course Vital Signs 03/22/17 03/22/17 07:21 14:47 Temperature 98.5 F Pulse Rate 99 H Respiratory 20 20 Rate Blood Pressure 140/84 O2 Sat by Pulse 99 Oximetry - Reevaluation(s) Reevaluation #1: he patient was given IV fluids antiemetics and analgesia. Her symptoms resolved essentially. Her CT showed no interval change of her hypertensive liver lesions which are continued to be interpreted as benign by the radiologist. There was no left lower quadrant process specifically perhaps other than the presence of uterine fibroids. 03/22/17 16:26 03/22/17 16:34 03/22/17 16:34 Reevaluation #2: The patient was given IV fluids and insulin. She was asking for gram crackers at the point when she was ready for discharge. ED Medical Decision Making - Lab Data Result diagrams: 03/22/17 07:27 03/22/17 07:27 Laboratory Results - last 24 hr 03/22/17 03/22/17 03/22/17 07:27 07:27 07:40 WBC 8.9 RBC 4.55 Hgb 7.9 L Hct 26.2 L MCV 58 L MCH 17 L MCHC 30 RDW 20.1 H Plt Count 467 H Lymph % (Auto) 23.7 [place] % (Auto) 6.9 Eos % (Auto) 2.2 Baso % (Auto) 0.5 Lymph # 2.1 [place] # 0.6 Eos # 0.2 Baso # 0.0 Seg Neutrophils % 66.7 Seg Neutrophils # 6.0 Sodium 133 L Potassium 4.3 Chloride 94.7 L Carbon Dioxide 22 Anion Gap 21 BUN 11 Creatinine 0.7 Estimated GFR > 60 BUN/Creatinine Ratio 15.71 Glucose 368 H Calcium 9.4 Total Bilirubin < 0.20 AST 13 ALT 11 Alkaline Phosphatase 121 Total Protein 7.6 Albumin 3.8 L Albumin/Globulin Ratio 1.0 Lipase 31 HCG, Qual Urine Color Straw Urine Turbidity Clear Urine pH 6.0 Ur Specific [place] 1.015 Urine Protein 30 mg/dl Urine Glucose (UA) >=500 Urine Ketones Tr Urine Blood Neg Urine Nitrite Neg Urine Bilirubin Neg Urine Urobilinogen < 2.0 Ur Leukocyte Esterase Neg Urine WBC (Auto) < 1.0 Urine RBC (Auto) 1.0 U Epithel Cells (Auto) < 1.0 03/22/17 10:03 WBC RBC Hgb Hct MCV MCH MCHC RDW Plt Count Lymph % (Auto) [place] % (Auto) Eos % (Auto) Baso % (Auto) Lymph # [place] # Eos # Baso # Seg Neutrophils % Seg Neutrophils # Sodium Potassium Chloride Carbon Dioxide Anion Gap BUN Creatinine Estimated GFR BUN/Creatinine Ratio Glucose Calcium Total Bilirubin AST ALT Alkaline Phosphatase Total Protein Albumin Albumin/Globulin Ratio Lipase HCG, Qual Negative Urine Color Urine Turbidity Urine pH Ur Specific [place] Urine Protein Urine Glucose (UA) Urine Ketones Urine Blood Urine Nitrite Urine Bilirubin Urine Urobilinogen Ur Leukocyte Esterase Urine WBC (Auto) Urine RBC (Auto) U Epithel Cells (Auto) Critical care attestation.: If time is entered above; I have spent that time in minutes in the direct care of this critically ill patient, excluding procedure time. ED Disposition Clinical Impression: Chronic anemia, Dysfunctional uterine bleeding Abdominal pain Qualifiers: Abdominal location: left upper quadrant Qualified Code(s): R10.12 - Left upper quadrant pain Type 2 diabetes mellitus with hyperglycemia Qualifiers: Diabetes mellitus mcc insulin use: without mcc use Qualified Code(s ): E11.65 - Type 2 diabetes mellitus with hyperglycemia Disposition: TO HOME OR SELFCARE Is pt being admited?: No Does the pt Need Aspirin: No Condition: Stable Instructions: Abdominal Pain (ED), Diabetes Mellitus Type 2 in Adults (ED) Additional Instructions: Return any acute change or problem. It is essential that he take supplemental iron as you are significantly anemic. She do not he will likely require transfusion in the future. Follow-up with explosive ordnance disposal technician. Follow-up with medical clinic. Rx as directed. Prescriptions: Ferrous Gluconate [Fergon 325 MG tab] 325 mg PO TID #20 tablet Metformin HCl [Glucophage] 850 mg PO BID #60 tablet Ondansetron [Zofran Odt] 4 mg PO Q6H PRN #10 tab.rapdis PRN Reason: nausea traMADol [Ultram] 50 mg PO Q6HR PRN #14 tablet PRN Reason: Pain Referrals: PRIMARY CARE, [Primary Care Provider] - 3-5 Days TONYA GIMENEZ MD [Staff Physician] - 3-5 Days Time of Disposition: 16:43
[2017-03-22] MEDS ORDERED: NACL 0.9% 1000 ML 1,000 ML IV ONE (13:45)
[2017-03-22] MEDS ORDERED: MORPHINE IV ONE (13:46)
[2017-03-22] MEDS ORDERED: PEPCID IV ONE (13:46)
[2017-03-22] MEDS ORDERED: ZOFRAN IV ONE (13:46)
--- NOTE | 2017-03-22 15:40 | Cat Scan Report ---
CT scan of abdomen and pelvis with IV contrast: History: Left lower quadrant pain. Findings: Normal lung bases. No pleural or pericardial effusion. Fatty infiltration liver. Hyperdense lesions are identified at liver without interval change. No intrahepatic or extubated dilatation. Normal pancreas and gallbladder and spleen. Normal adrenals kidney parenchyma and bladder. No free intraperitoneal fluid or air. No evidence of adenopathy. No evidence of appendicitis or diverticulitis. Gaseous colon with stool in colon. Suspicion of fibroid uterus. Ovaries appear to be the upper limit of normal in size. Impression: Hyperdense lesions in liver without interval change. Probably benign. Additional findings as detailed above.
[2017-03-22 17:23] VITALS: BP 136/71
== END 2017-03-22 17:00 | disposition home or self-care (01) ==
LOC: ED 06:40
DX: N93.8 Other specified abnormal uterine and vaginal bleeding (principal); D50.0 Iron deficiency anemia secondary to blood loss (chronic); E11.65 Type 2 diabetes mellitus with hyperglycemia; I10 Essential (primary) hypertension; G43.909 Migraine, unspecified, not intractable, without status migrainosus; F41.9 Anxiety disorder, unspecified; E11.40 Type 2 diabetes mellitus with diabetic neuropathy, unspecified; F17.210 Nicotine dependence, cigarettes, uncomplicated; Z88.6 Allergy status to analgesic agent
CPT/HCPCS: 36415; 74177; 80053; 81001; 83690; 84703; 85025; 96361; 96372; 96374; 96375; 99284; J2270; J2405; J7030; Q9967; J1815

== ENCOUNTER 2017-08-18 20:55 | Emergency (ER) | payer OTHER ==
[2017-08-18] MEDS ORDERED: VALIUM PO ONE (23:39)
[2017-08-18] MEDS ORDERED: TYLENOL PO ONE (23:39)
[2017-08-19 00:06] LABS: Urine Drugs of Abuse Note Disclamer
[2017-08-19 00:35] LABS: Basophils % (Auto) 0.5 % (0.0-1.8); Eosinophils % (Auto) 1.5 % (0.0-4.3); Mean Corpuscular HGB Conc 29 % (30-34); Platelet Count 444 K/mm3 (140-440); Red Blood Count 4.57 M/mm3 (3.65-5.03); White Blood Count 10.7 K/mm3 (4.5-11.0)
[2017-08-19 00:38] LABS: Bilirubin,Urine NEG (Negative); Blood,Urine NEG (Negative); Ketones,Urine NEG (Negative); Leukocyte Esterase,Urine NEG (Negative); Mucus,Urine FEW /HPF; Nitrite,Urine NEG (Negative); Urobilinogen,Urine < 2.0 mg/dL (<2.0)
[2017-08-19 00:39] LABS: Hemoglobin 7.3 gm/dl (10.1-14.3); Mean Corpuscular Hemoglobin 16 pg (28-32); Mean Corpuscular Volume 55 fl (79-97); Red Cell Distribution Width 20.8 % (13.2-15.2)
[2017-08-19 01:14] LABS: Anion Gap 22 mmol/L; BUN/Creatinine Ratio 17; Blood Urea Nitrogen 12 mg/dL (7-17); Calcium 9.5 mg/dL (8.4-10.2); Carbon Dioxide 20 mmol/L (22-30); Chloride 93.8 mmol/L (98-107); Glucose 212 mg/dL (65-100); Potassium 4.3 mmol/L (3.6-5.0); Sodium 131 mmol/L (137-145)
--- NOTE | 2017-08-19 01:44 | Emergency Department Report ---
ED Anxiety HPI - General Chief Complaint: Anxiety Stated Complaint: C/P EMY Time Seen by Provider: 08/19/17 01:18 Source: patient, EMS Mode of arrival: Ambulatory - History of Present Illness Initial Comments: 36-year-old female past medical history anxiety, diabetes, hypertension presents with complaint of episode of anxiety today at work. States it lasted for a few minutes. States that she hyperventilated and felt slightly lightheaded. Denies chest pain shortness of breath nausea vomiting fever chills dysuria or increased urinary frequency abdominal pain. Patient is calm awake alert and oriented 3 accompanied by family member at bedside fully lucid and cooperative. Denies suicidal or homicidal ideation denies auditory or visual hallucinations. Patient states that she does follow up with a primary doctor and has been on antidepressants in the past but is not currently on any antipsychotics or antidepressants. MD Complaint: anxiety Place: home - Related Data Home Medications: Previous Rx's Medication Instructions Recorded Last Taken Type Ciprofloxacin HCl [Cipro] 500 mg PO BID #28 tablet 03/16/15 Unknown Rx Sulfamethoxazole/Trimethoprim 1 each PO BID #28 tablet 03/16/15 Unknown Rx [Bactrim Ds] oxyCODONE /ACETAMINOPHEN [Percocet 1 tab PO Q6H PRN #30 tablet 03/16/15 Unknown Rx 5/325 mg] HYDROcodone/APAP 5-325 [[place] 1 each PO Q6HR PRN #20 tablet 01/20/16 Unknown Rx 5/325] Ibuprofen [Motrin 800 MG tab] 800 mg PO Q8HR PRN #30 tablet 01/20/16 Unknown Rx Cephalexin [Keflex] 500 mg PO Q12HR #14 cap 04/20/16 Unknown Rx Sulfamethoxazole/Trimethoprim 1 each PO BID #14 tablet 04/20/16 Unknown Rx [Bactrim DS TAB] traMADol [Ultram] 50 mg PO Q4HR PRN #15 tablet 04/20/16 Unknown Rx Albuterol Sulfate [Ventolin HFA] 2 puff IH Q4H PRN #1 hfa.aer.ad 01/24/17 Unknown Rx Butalb/Acetamin/Caff 50-325-40 1 tab PO Q6HR PRN #15 tab 01/24/17 Unknown Rx [Fioricet] Cyclobenzaprine [Flexeril 10 MG 10 mg PO QHS #24 tablet 01/24/17 Unknown Rx TAB] Docusate Sodium [Colace CAP] 100 mg PO BID PRN #30 capsule 01/24/17 Unknown Rx Ferrous Sulfate [Feosol 325 MG tab] 325 mg PO QDAY #30 tablet 01/24/17 Unknown Rx Ibuprofen [Motrin 800 MG tab] 800 mg PO TID #30 tablet 01/24/17 Unknown Rx metFORMIN [Glucophage] 850 mg PO BID #60 tablet 01/24/17 Unknown Rx Dicyclomine [Bentyl] 20 mg PO QID #30 bottle 03/20/17 Unknown Rx Famotidine [Pepcid] 20 mg PO BID #20 tablet 03/20/17 Unknown Rx Ferrous Gluconate [Fergon 325 MG 325 mg PO TID #20 tablet 03/22/17 Unknown Rx tab] Metformin HCl [Glucophage] 850 mg PO BID #60 tablet 03/22/17 Unknown Rx Ondansetron [Zofran Odt] 4 mg PO Q6H PRN #10 tab.rapdis 03/22/17 Unknown Rx traMADol [Ultram] 50 mg PO Q6HR PRN #14 tablet 03/22/17 Unknown Rx Hydroxyzine HCl 25 mg PO Q8H PRN #10 tablet 08/19/17 Unknown Rx Allergies/Adverse Reactions: Allergies Allergy/AdvReac Type Severity Reaction Status Date / Time aspirin Allergy Rash Verified 03/13/15 11:42 ED Review of Systems ROS: Stated complaint: C/P EMY Other details as noted in HPI Constitutional: denies: chills, fever Eyes: denies: eye pain, eye discharge, vision change ENT: denies: ear pain, throat pain Respiratory: denies: cough, shortness of breath, wheezing Cardiovascular: denies: chest pain, palpitations Endocrine: no symptoms reported Gastrointestinal: denies: abdominal pain, nausea, diarrhea Genitourinary: denies: urgency, dysuria, discharge Musculoskeletal: denies: back pain, joint swelling, arthralgia Skin: denies: rash, lesions Neurological: denies: headache, weakness, paresthesias Psychiatric: denies: anxiety, depression Hematological/Lymphatic: denies: easy bleeding, easy bruising ED Past Medical Hx - Past Medical History Previous Medical History?: Yes Hx Hypertension: Yes Hx Diabetes: Yes (oral meds) Hx Headaches / Migraines: Yes Hx Psychiatric Treatment: Yes (anxiety) Hx HIV: No Additional medical history: neuropathy, diabetic gastroparesis. ANEMIA. CARPAL TUNNEL. - Surgical History Past Surgical History?: Yes Additional Surgical History: D & C. LEFT GREAT TOE SURGERY - Social History Smoking Status: Never Smoker - Medications Home Medications: Home Medications Medication Instructions Recorded Confirmed Last Taken Type Ciprofloxacin HCl [Cipro] 500 mg PO BID #28 tablet 03/16/15 02/27/16 Unknown Rx Sulfamethoxazole/Trimethoprim 1 each PO BID #28 tablet 03/16/15 02/27/16 Unknown Rx [Bactrim Ds] oxyCODONE /ACETAMINOPHEN [Percocet 1 tab PO Q6H PRN #30 tablet 03/16/15 Unknown Rx 5/325 mg] HYDROcodone/APAP 5-325 [[place] 1 each PO Q6HR PRN #20 tablet 01/20/16 02/27/16 Unknown Rx 5/325] Ibuprofen [Motrin 800 MG tab] 800 mg PO Q8HR PRN #30 tablet 01/20/16 02/27/16 Unknown Rx Cephalexin [Keflex] 500 mg PO Q12HR #14 cap 04/20/16 Unknown Rx Sulfamethoxazole/Trimethoprim 1 each PO BID #14 tablet 04/20/16 Unknown Rx [Bactrim DS TAB] traMADol [Ultram] 50 mg PO Q4HR PRN #15 tablet 04/20/16 Unknown Rx Albuterol Sulfate [Ventolin HFA] 2 puff IH Q4H PRN #1 hfa.aer.ad 01/24/17 Unknown Rx Butalb/Acetamin/Caff 50-325-40 1 tab PO Q6HR PRN #15 tab 01/24/17 Unknown Rx [Fioricet] Cyclobenzaprine [Flexeril 10 MG 10 mg PO QHS #24 tablet 01/24/17 Unknown Rx TAB] Docusate Sodium [Colace CAP] 100 mg PO BID PRN #30 capsule 01/24/17 Unknown Rx Ferrous Sulfate [Feosol 325 MG tab] 325 mg PO QDAY #30 tablet 01/24/17 Unknown Rx Ibuprofen [Motrin 800 MG tab] 800 mg PO TID #30 tablet 01/24/17 Unknown Rx metFORMIN [Glucophage] 850 mg PO BID #60 tablet 01/24/17 Unknown Rx Dicyclomine [Bentyl] 20 mg PO QID #30 bottle 03/20/17 Unknown Rx Famotidine [Pepcid] 20 mg PO BID #20 tablet 03/20/17 Unknown Rx Ferrous Gluconate [Fergon 325 MG 325 mg PO TID #20 tablet 03/22/17 Unknown Rx tab] Metformin HCl [Glucophage] 850 mg PO BID #60 tablet 03/22/17 Unknown Rx Ondansetron [Zofran Odt] 4 mg PO Q6H PRN #10 tab.rapdis 03/22/17 Unknown Rx traMADol [Ultram] 50 mg PO Q6HR PRN #14 tablet 03/22/17 Unknown Rx Hydroxyzine HCl 25 mg PO Q8H PRN #10 tablet 08/19/17 Unknown Rx ED Physical Exam - General Limitations: No Limitations General appearance: alert, in no apparent distress - Head Head exam: Present: atraumatic, normocephalic - Eye Eye exam: Present: normal appearance, PERRL, EOMI - ENT ENT exam: Present: mucous membranes moist - Neck Neck exam: Present: normal inspection - Respiratory Respiratory exam: Present: normal lung sounds bilaterally. Absent: respiratory distress - Cardiovascular Cardiovascular Exam: Present: regular rate, normal rhythm. Absent: systolic murmur, diastolic murmur, rubs, gallop - GI/Abdominal GI/Abdominal exam: Present: soft, normal bowel sounds - Extremities Exam Extremities exam: Present: normal inspection - Back Exam Back exam: Present: normal inspection - Neurological Exam Neurological exam: Present: alert, oriented X3, CN II-XII intact, normal gait - Expanded Neurological Exam Expanded Patient oriented to: Present: person, place, time Cranial nerves: EOM's Intact: Normal, Facial Sensation: Normal Cerebellar function: Finger to Nose: Normal, Heel to [place]: Normal, [place]: Normal Sensory exam: Upper Extremity Light Touch: Normal, Lower Extremity Light Touch: Normal Motor strength exam: RUE: 5, LUE: 5, RLE: 5, LLE: 5 Best Eye Response ([place]): (4) open spontaneously Best Motor Response ([place]): (6) obeys commands Best Verbal Response ([place]): (5) oriented [place] Total: 15 - Psychiatric Psychiatric exam: Present: normal affect, normal mood - Skin Skin exam: Present: warm, dry, intact, normal color. Absent: rash ED Course Vital Signs 08/18/17 23:21 Temperature 99.1 F Pulse Rate 98 H Respiratory 16 Rate Blood Pressure 123/75 O2 Sat by Pulse 100 Oximetry ED Medical Decision Making - Lab Data Result diagrams: 08/19/17 00:01 08/19/17 00:01 - Medical Decision Making A/P: Anxiety attack 1-patient is asymptomatic has no SI or HI fully lucid cooperative awake alert and oriented 3. No acute clinical signs of psychosis on interview 2-labs unremarkable, EKG sinus rhythm 3-case discussed with Dr. Holder before DC 4- I advised patient to follow up with primary care. Hydroxyzine when necessary for anxiety Critical care attestation.: If time is entered above; I have spent that time in minutes in the direct care of this critically ill patient, excluding procedure time. ED Disposition Clinical Impression: Anxiety attack Disposition: DC-01 TO HOME OR SELFCARE Is pt being admited?: No Does the pt Need Aspirin: No Condition: Stable Instructions: Anxiety (ED), Generalized Anxiety Disorder (ED) Prescriptions: Hydroxyzine HCl 25 mg PO Q8H PRN #10 tablet PRN Reason: Anxiety Referrals: [facility] [Outside] - 3-5 Days [facility] [Outside] - 3-5 Days Forms: Accompanied Note, Work/School Release Form(ED) Time of Disposition: 01:51
[2017-08-19 02:03] VITALS: BP 122/72
== END 2017-08-19 02:15 | disposition home or self-care (01) ==
LOC: ED 20:55
DX: F41.9 Anxiety disorder, unspecified (principal); R42 Dizziness and giddiness; I10 Essential (primary) hypertension; G43.909 Migraine, unspecified, not intractable, without status migrainosus; E11.43 Type 2 diabetes mellitus with diabetic autonomic (poly)neuropathy; K31.84 Gastroparesis; D64.9 Anemia, unspecified; Z88.8 Allergy status to other drugs, medicaments and biological substances
CPT/HCPCS: 36415; 80048; 80307; 81001; 81025; 84484; 85025; 93005; 93010; 99284

== ENCOUNTER 2017-12-20 05:43 | Emergency (ER) | payer SELFPAY ==
[2017-12-20 06:00] VITALS: BP 123/72
[2017-12-20 06:41] LABS: Bilirubin,Urine NEG (Negative); Blood,Urine SM (Negative); Color,Urine Red (Yellow); Mucus,Urine FEW /HPF; Urobilinogen,Urine < 2.0 mg/dL (<2.0)
[2017-12-20 06:56] LABS: HCG Qualitative,Urine Negative (Negative)
--- NOTE | 2017-12-20 07:45 | Emergency Department Report ---
ED Female HPI - General Chief complaint: Urogenital-Female Stated complaint: VAGINAL DISCOMFORT Source: patient Mode of arrival: Ambulatory Limitations: No Limitations - History of Present Illness Initial comments: Ms. Lee is a 36-year-old female presents with 3 days of vaginal irritation. White vaginal discharge or vaginal itchiness. She denies dysuria. She has labia burning when she urinates. MD Complaint: other (vaginal irritation) -: days(s) (3) Location: labia Radiation: non-radiating Severity: mild Quality: other (irritation) Consistency: constant Worsens with: urination, other (wiping) - Related Data Previous Rx's Medication Instructions Recorded Last Taken Type Ciprofloxacin HCl [Cipro] 500 mg PO BID #28 tablet 03/16/15 Unknown Rx Sulfamethoxazole/Trimethoprim 1 each PO BID #28 tablet 03/16/15 Unknown Rx [Bactrim Ds] oxyCODONE /ACETAMINOPHEN [Percocet 1 tab PO Q6H PRN #30 tablet 03/16/15 Unknown Rx 5/325 mg] HYDROcodone/APAP 5-325 [[place] 1 each PO Q6HR PRN #20 tablet 01/20/16 Unknown Rx 5/325] Ibuprofen [Motrin 800 MG tab] 800 mg PO Q8HR PRN #30 tablet 01/20/16 Unknown Rx Cephalexin [Keflex] 500 mg PO Q12HR #14 cap 04/20/16 Unknown Rx Sulfamethoxazole/Trimethoprim 1 each PO BID #14 tablet 04/20/16 Unknown Rx [Bactrim DS TAB] traMADol [Ultram] 50 mg PO Q4HR PRN #15 tablet 04/20/16 Unknown Rx Albuterol Sulfate [Ventolin HFA] 2 puff IH Q4H PRN #1 hfa.aer.ad 01/24/17 Unknown Rx Butalb/Acetamin/Caff 50-325-40 1 tab PO Q6HR PRN #15 tab 01/24/17 Unknown Rx [Fioricet] Cyclobenzaprine [Flexeril 10 MG 10 mg PO QHS #24 tablet 01/24/17 Unknown Rx TAB] Docusate Sodium [Colace CAP] 100 mg PO BID PRN #30 capsule 01/24/17 Unknown Rx Ferrous Sulfate [Feosol 325 MG tab] 325 mg PO QDAY #30 tablet 05/07/17 Unknown Rx Ibuprofen [Motrin 800 MG tab] 800 mg PO TID #30 tablet 01/24/17 Unknown Rx metFORMIN [Glucophage] 850 mg PO BID #60 tablet 01/24/17 Unknown Rx Dicyclomine [Bentyl] 20 mg PO QID #30 bottle 03/20/17 Unknown Rx Famotidine [Pepcid] 20 mg PO BID #20 tablet 03/20/17 Unknown Rx Ferrous Gluconate [Fergon 325 MG 325 mg PO TID #20 tablet 03/22/17 Unknown Rx tab] Metformin HCl [Glucophage] 850 mg PO BID #60 tablet 03/22/17 Unknown Rx Ondansetron [Zofran Odt] 4 mg PO Q6H PRN #10 tab.rapdis 03/22/17 Unknown Rx traMADol [Ultram] 50 mg PO Q6HR PRN #14 tablet 03/22/17 Unknown Rx Hydroxyzine HCl 25 mg PO Q8H PRN #10 tablet 08/19/17 Unknown Rx Allergies Allergy/AdvReac Type Severity Reaction Status Date / Time aspirin Allergy Rash Verified 03/13/15 11:42 ED Review of Systems ROS: Stated complaint: VAGINAL DISCOMFORT Other details as noted in HPI ED Past Medical Hx - Past Medical History Hx Hypertension: Yes Hx Diabetes: Yes (oral meds) Hx Headaches / Migraines: Yes Hx Psychiatric Treatment: Yes (anxiety) Hx HIV: No Additional medical history: neuropathy, diabetic gastroparesis. ANEMIA. CARPAL TUNNEL. - Surgical History Additional Surgical History: D & C. LEFT GREAT TOE SURGERY - Social History Smoking Status: Current Every Day Smoker Substance Use Type: None - Medications Home Medications: Home Medications Medication Instructions Recorded Confirmed Last Taken Type Ciprofloxacin HCl [Cipro] 500 mg PO BID #28 tablet 03/16/15 02/27/16 Unknown Rx Sulfamethoxazole/Trimethoprim 1 each PO BID #28 tablet 03/16/15 02/27/16 Unknown Rx [Bactrim Ds] oxyCODONE /ACETAMINOPHEN [Percocet 1 tab PO Q6H PRN #30 tablet 03/16/15 Unknown Rx 5/325 mg] HYDROcodone/APAP 5-325 [[place] 1 each PO Q6HR PRN #20 tablet 01/20/16 02/27/16 Unknown Rx 5/325] Ibuprofen [Motrin 800 MG tab] 800 mg PO Q8HR PRN #30 tablet 01/20/16 02/27/16 Unknown Rx Cephalexin [Keflex] 500 mg PO Q12HR #14 cap 04/20/16 Unknown Rx Sulfamethoxazole/Trimethoprim 1 each PO BID #14 tablet 04/20/16 Unknown Rx [Bactrim DS TAB] traMADol [Ultram] 50 mg PO Q4HR PRN #15 tablet 04/20/16 Unknown Rx Albuterol Sulfate [Ventolin HFA] 2 puff IH Q4H PRN #1 hfa.aer.ad 01/24/17 Unknown Rx Butalb/Acetamin/Caff 50-325-40 1 tab PO Q6HR PRN #15 tab 01/24/17 Unknown Rx [Fioricet] Cyclobenzaprine [Flexeril 10 MG 10 mg PO QHS #24 tablet 01/24/17 Unknown Rx TAB] Docusate Sodium [Colace CAP] 100 mg PO BID PRN #30 capsule 01/24/17 Unknown Rx Ferrous Sulfate [Feosol 325 MG tab] 325 mg PO QDAY #30 tablet 01/24/17 Unknown Rx Ibuprofen [Motrin 800 MG tab] 800 mg PO TID #30 tablet 01/24/17 Unknown Rx metFORMIN [Glucophage] 850 mg PO BID #60 tablet 01/24/17 Unknown Rx Dicyclomine [Bentyl] 20 mg PO QID #30 bottle 03/20/17 Unknown Rx Famotidine [Pepcid] 20 mg PO BID #20 tablet 03/20/17 Unknown Rx Ferrous Gluconate [Fergon 325 MG 325 mg PO TID #20 tablet 03/22/17 Unknown Rx tab] Metformin HCl [Glucophage] 850 mg PO BID #60 tablet 03/22/17 Unknown Rx Ondansetron [Zofran Odt] 4 mg PO Q6H PRN #10 tab.rapdis 03/22/17 Unknown Rx traMADol [Ultram] 50 mg PO Q6HR PRN #14 tablet 03/22/17 Unknown Rx Hydroxyzine HCl 25 mg PO Q8H PRN #10 tablet 08/19/17 Unknown Rx ED Physical Exam - General Limitations: No Limitations General appearance: alert, in no apparent distress - Head Head exam: Present: atraumatic, normocephalic - Eye Eye exam: Present: normal appearance - ENT ENT exam: Present: mucous membranes moist - Neck Neck exam: Present: normal inspection - Respiratory Respiratory exam: Absent: respiratory distress - Cardiovascular Cardiovascular Exam: Absent: systolic murmur, diastolic murmur, rubs, gallop - External exam: Present: other (deferred) - Extremities Exam Extremities exam: Present: normal inspection - Back Exam Back exam: Present: normal inspection - Neurological Exam Neurological exam: Present: alert, oriented X3 - Psychiatric Psychiatric exam: Present: normal affect, normal mood - Skin Skin exam: Present: warm, dry, intact, normal color. Absent: rash ED Course Vital Signs 12/20/17 05:48 Temperature 98.2 F Pulse Rate 104 H Respiratory 18 Rate Blood Pressure 123/72 O2 Sat by Pulse 98 Oximetry ED Medical Decision Making - Medical Decision Making Ms. Ferrer presents with vaginitis. Prescribed fluconazole and metronidazole for candidiasis and bacterial vaginosis Critical care attestation.: If time is entered above; I have spent that time in minutes in the direct care of this critically ill patient, excluding procedure time. ED Disposition Clinical Impression: Vaginitis Disposition: DC-01 TO HOME OR SELFCARE Is pt being admited?: No Does the pt Need Aspirin: No Condition: Stable Instructions: Vaginitis (ED) Referrals: [facility] [Outside] - 3-5 Days Forms: Work/School Release Form(ED) Time of Disposition: 07:45
== END 2017-12-20 07:55 | disposition home or self-care (01) ==
LOC: ED 05:43
DX: N76.0 Acute vaginitis (principal); I10 Essential (primary) hypertension; E11.9 Type 2 diabetes mellitus without complications; G43.909 Migraine, unspecified, not intractable, without status migrainosus; F41.9 Anxiety disorder, unspecified; F17.200 Nicotine dependence, unspecified, uncomplicated; Z88.6 Allergy status to analgesic agent; Z86.2 Personal history of diseases of the blood and blood-forming organs and certain disorders involving the immune mechanism
CPT/HCPCS: 81001; 81025; 99283

== ENCOUNTER 2018-01-11 20:40 | Emergency (ER) | payer SELFPAY ==
[2018-01-11] MEDS ORDERED: TYLENOL ONE (22:59)
[2018-01-11] MEDS ORDERED: TYLENOL PO ONE (23:01)
[2018-01-11 23:46] LABS: Basophils % (Auto) 0.3 % (0.0-1.8); Eosinophils # (Auto) 0.2 K/mm3 (0.0-0.4); Eosinophils % (Auto) 1.6 % (0.0-4.3); Lymphocytes # (Auto) 2.2 K/mm3 (1.2-5.4); Lymphocytes % (Auto) 20.9 % (13.4-35.0); Mean Corpuscular HGB Conc 29 % (30-34); Monocytes # (Auto) 0.6 K/mm3 (0.0-0.8); Monocytes % (Auto) 5.6 % (0.0-7.3); Platelet Count 381 K/mm3 (140-440); Red Blood Count 4.64 M/mm3 (3.65-5.03)
[2018-01-11 23:54] LABS: Hematocrit 24.9 % (30.3-42.9); Hemoglobin 7.3 gm/dl (10.1-14.3); Mean Corpuscular Volume 54 fl (79-97)
[2018-01-11 23:55] LABS: Mean Corpuscular Hemoglobin 16 pg (28-32); Red Cell Distribution Width 21.2 % (13.2-15.2)
[2018-01-12 00:12] LABS: BUN/Creatinine Ratio 13; Blood Urea Nitrogen 10 mg/dL (7-17); Calcium 9.8 mg/dL (8.4-10.2); Hemolysis Index 0
[2018-01-12 02:06] LABS: Bilirubin,Urine NEG (Negative); Blood,Urine SM (Negative); Color,Urine Yellow (Yellow); Urobilinogen,Urine < 2.0 mg/dL (<2.0)
[2018-01-12 02:14] LABS: HCG Qualitative,Urine Negative (Negative)
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
[2018-01-12] MEDS ORDERED: HumuLIN R IV ONE (05:54)
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
[2018-01-12] MEDS ORDERED: HumuLIN R SUB-Q ONE (06:40)
--- NOTE | 2018-01-12 08:21 | Emergency Department Report ---
Blank Doc - Documentation Documentation: Patient's report was given by Ibeth Ross NP for a pending blood glucose to be lower than 250 and then discharged. Currently blood glucose is 245 so the patient is discharged. Patient is stable with no acute signs of distress. Patient is ambulatory. Vital signs are stable.
[2018-01-12 08:25] VITALS: BP 137/85
== END 2018-01-12 08:33 | disposition home or self-care (01) ==
LOC: ED 20:40
DX: S66.911A Strain of unspecified muscle, fascia and tendon at wrist and hand level, right hand, initial encounter (principal); S46.911A Strain of unspecified muscle, fascia and tendon at shoulder and upper arm level, right arm, initial encounter; H92.01 Otalgia, right ear; I10 Essential (primary) hypertension; E11.9 Type 2 diabetes mellitus without complications; Z88.6 Allergy status to analgesic agent; Y04.8XXA Assault by other bodily force, initial encounter; Y93.89 Activity, other specified; Y92.89 Other specified places as the place of occurrence of the external cause; Y99.8 Other external cause status
CPT/HCPCS: 36415; 70450; 70486; 72125; 80048; 81001; 81025; 82805; 82962; 85025; 96372; 99285; J1815

== ENCOUNTER 2018-03-13 07:12 | Emergency (ER) | payer SELFPAY ==
[2018-03-13 07:16] VITALS: BP 141/80
[2018-03-13] MEDS ORDERED: MOTRIN PO ONE (08:39)
--- NOTE | 2018-03-13 09:06 | Emergency Department Report ---
ED Lower Extremity HPI - General Chief Complaint: Extremity Injury, Lower Stated Complaint: POSS ANKLE SPRANG/RIGHT Time Seen by Provider: 03/13/18 08:32 Source: patient Mode of arrival: Ambulatory Limitations: No Limitations - History of Present Illness Initial Comments: Patient 37-year-old female states she rolled her right ankle question grocery cart in parking lot 2 days ago pain swelling on ambulation however remains ambulatory pain exacerbated by flexion and extension presents today requesting an x-ray pain medication for increased swelling MD Complaint: ankle injury Onset/Timin Injury: Ankle: Right (pain swelling ) Place: work Severity: mild Severity scale (0 -10): 5 Improves With: NSAID Worsens With: weight bearing Context: fall, other (twistig ) Associated Symptoms: swelling - Related Data Previous Rx's Medication Instructions Recorded Last Taken Type Ciprofloxacin HCl [Cipro] 500 mg PO BID #28 tablet 03/16/15 Unknown Rx Sulfamethoxazole/Trimethoprim 1 each PO BID #28 tablet 03/16/15 Unknown Rx [Bactrim Ds] oxyCODONE /ACETAMINOPHEN [Percocet 1 tab PO Q6H PRN #30 tablet 03/16/15 Unknown Rx 5/325 mg] HYDROcodone/APAP 5-325 [[place] 1 each PO Q6HR PRN #20 tablet 01/20/16 Unknown Rx 5/325] Ibuprofen [Motrin 800 MG tab] 800 mg PO Q8HR PRN #30 tablet 01/20/16 Unknown Rx Cephalexin [Keflex] 500 mg PO Q12HR #14 cap 04/20/16 Unknown Rx Sulfamethoxazole/Trimethoprim 1 each PO BID #14 tablet 04/20/16 Unknown Rx [Bactrim DS TAB] traMADol [Ultram] 50 mg PO Q4HR PRN #15 tablet 04/20/16 Unknown Rx Albuterol Sulfate [Ventolin HFA] 2 puff IH Q4H PRN #1 hfa.aer.ad 01/24/17 Unknown Rx Butalb/Acetamin/Caff 50-325-40 1 tab PO Q6HR PRN #15 tab 01/24/17 Unknown Rx [Fioricet] Cyclobenzaprine [Flexeril 10 MG 10 mg PO QHS #24 tablet 01/24/17 Unknown Rx TAB] Docusate Sodium [Colace CAP] 100 mg PO BID PRN #30 capsule 01/24/17 Unknown Rx Ferrous Sulfate [Feosol 325 MG tab] 325 mg PO QDAY #30 tablet 01/24/17 Unknown Rx Ibuprofen [Motrin 800 MG tab] 800 mg PO TID #30 tablet 01/24/17 Unknown Rx metFORMIN [Glucophage] 850 mg PO BID #60 tablet 01/24/17 Unknown Rx Dicyclomine [Bentyl] 20 mg PO QID #30 bottle 03/20/17 Unknown Rx Famotidine [Pepcid] 20 mg PO BID #20 tablet 03/20/17 Unknown Rx Ferrous Gluconate [Fergon 325 MG 325 mg PO TID #20 tablet 03/22/17 Unknown Rx tab] Metformin HCl [Glucophage] 850 mg PO BID #60 tablet 03/22/17 Unknown Rx Ondansetron [Zofran Odt] 4 mg PO Q6H PRN #10 tab.rapdis 03/22/17 Unknown Rx traMADol [Ultram] 50 mg PO Q6HR PRN #14 tablet 03/22/17 Unknown Rx Hydroxyzine HCl 25 mg PO Q8H PRN #10 tablet 08/19/17 Unknown Rx Fluconazole [Diflucan TAB] 150 mg PO ONCE #1 tablet 12/20/17 Unknown Rx metroNIDAZOLE [Metronidazole] 500 mg PO BID 7 Days #14 tablet 12/20/17 Unknown Rx Tizanidine HCl [tiZANidine] 2 mg PO TID PRN #20 tablet 01/12/18 Unknown Rx traMADol [Ultram 50 MG tab] 50 mg PO Q6HR PRN #15 tablet 01/12/18 Unknown Rx Cyclobenzaprine [Flexeril] 10 mg PO BID PRN #20 tablet 03/13/18 Unknown Rx Ibuprofen [Motrin 800 MG tab] 800 mg PO Q8HR PRN #30 tablet 03/13/18 Unknown Rx Allergies Allergy/AdvReac Type Severity Reaction Status Date / Time aspirin Allergy Rash Verified 03/13/18 07:14 ED Review of Systems ROS: Stated complaint: POSS ANKLE SPRANG/RIGHT Other details as noted in HPI Constitutional: denies: chills, fever Eyes: denies: eye pain, eye discharge, vision change ENT: denies: ear pain, throat pain Respiratory: denies: cough, shortness of breath, wheezing Cardiovascular: denies: chest pain, palpitations Endocrine: no symptoms reported Gastrointestinal: denies: abdominal pain, nausea, diarrhea Genitourinary: denies: urgency, dysuria, discharge Musculoskeletal: joint swelling, myalgia Skin: denies: rash, lesions Neurological: denies: headache, weakness, paresthesias Psychiatric: denies: anxiety, depression Hematological/Lymphatic: denies: easy bleeding, easy bruising ED Past Medical Hx - Past Medical History Hx Hypertension: Yes Hx Diabetes: Yes (oral meds) Hx Headaches / Migraines: Yes Hx Psychiatric Treatment: Yes (anxiety) Hx HIV: No Additional medical history: neuropathy, diabetic gastroparesis. ANEMIA. CARPAL TUNNEL. - Surgical History Additional Surgical History: D & C. LEFT GREAT TOE SURGERY - Social History Smoking Status: Never Smoker Substance Use Type: None - Medications Home Medications: Home Medications Medication Instructions Recorded Confirmed Last Taken Type Ciprofloxacin HCl [Cipro] 500 mg PO BID #28 tablet 03/16/15 02/27/16 Unknown Rx Sulfamethoxazole/Trimethoprim 1 each PO BID #28 tablet 03/16/15 02/27/16 Unknown Rx [Bactrim Ds] oxyCODONE /ACETAMINOPHEN [Percocet 1 tab PO Q6H PRN #30 tablet 03/16/15 Unknown Rx 5/325 mg] HYDROcodone/APAP 5-325 [[place] 1 each PO Q6HR PRN #20 tablet 01/20/16 02/27/16 Unknown Rx 5/325] Ibuprofen [Motrin 800 MG tab] 800 mg PO Q8HR PRN #30 tablet 01/20/16 02/27/16 Unknown Rx Cephalexin [Keflex] 500 mg PO Q12HR #14 cap 04/20/16 Unknown Rx Sulfamethoxazole/Trimethoprim 1 each PO BID #14 tablet 04/20/16 Unknown Rx [Bactrim DS TAB] traMADol [Ultram] 50 mg PO Q4HR PRN #15 tablet 04/20/16 Unknown Rx Albuterol Sulfate [Ventolin HFA] 2 puff IH Q4H PRN #1 hfa.aer.ad 01/24/17 Unknown Rx Butalb/Acetamin/Caff 50-325-40 1 tab PO Q6HR PRN #15 tab 01/24/17 Unknown Rx [Fioricet] Cyclobenzaprine [Flexeril 10 MG 10 mg PO QHS #24 tablet 01/24/17 Unknown Rx TAB] Docusate Sodium [Colace CAP] 100 mg PO BID PRN #30 capsule 01/24/17 Unknown Rx Ferrous Sulfate [Feosol 325 MG tab] 325 mg PO QDAY #30 tablet 01/24/17 Unknown Rx Ibuprofen [Motrin 800 MG tab] 800 mg PO TID #30 tablet 01/24/17 Unknown Rx metFORMIN [Glucophage] 850 mg PO BID #60 tablet 01/24/17 Unknown Rx Dicyclomine [Bentyl] 20 mg PO QID #30 bottle 03/20/17 Unknown Rx Famotidine [Pepcid] 20 mg PO BID #20 tablet 03/20/17 Unknown Rx Ferrous Gluconate [Fergon 325 MG 325 mg PO TID #20 tablet 03/22/17 Unknown Rx tab] Metformin HCl [Glucophage] 850 mg PO BID #60 tablet 03/22/17 Unknown Rx Ondansetron [Zofran Odt] 4 mg PO Q6H PRN #10 tab.rapdis 03/22/17 Unknown Rx traMADol [Ultram] 50 mg PO Q6HR PRN #14 tablet 03/22/17 Unknown Rx Hydroxyzine HCl 25 mg PO Q8H PRN #10 tablet 08/19/17 Unknown Rx Fluconazole [Diflucan TAB] 150 mg PO ONCE #1 tablet 12/20/17 Unknown Rx metroNIDAZOLE [Metronidazole] 500 mg PO BID 7 Days #14 tablet 12/20/17 Unknown Rx Tizanidine HCl [tiZANidine] 2 mg PO TID PRN #20 tablet 01/12/18 Unknown Rx traMADol [Ultram 50 MG tab] 50 mg PO Q6HR PRN #15 tablet 01/12/18 Unknown Rx Cyclobenzaprine [Flexeril] 10 mg PO BID PRN #20 tablet 03/13/18 Unknown Rx Ibuprofen [Motrin 800 MG tab] 800 mg PO Q8HR PRN #30 tablet 03/13/18 Unknown Rx ED Physical Exam - General Limitations: No Limitations General appearance: alert, in no apparent distress - Head Head exam: Present: atraumatic, normocephalic - Eye Eye exam: Present: normal appearance - ENT ENT exam: Present: mucous membranes moist - Neck Neck exam: Present: normal inspection - Respiratory Respiratory exam: Present: normal lung sounds bilaterally. Absent: respiratory distress - Cardiovascular Cardiovascular Exam: Present: regular rate, normal rhythm. Absent: systolic murmur, diastolic murmur, rubs, gallop - GI/Abdominal GI/Abdominal exam: Present: soft, normal bowel sounds - Extremities Exam Extremities exam: Present: normal inspection, full ROM, tenderness (right lateral ankle ), normal capillary refill, joint swelling (right lateral ankle ) . Absent: pedal edema, calf tenderness - Expanded Lower Extremity Exam Right Ankle exam: Present: full ROM, tenderness, swelling (right lateral ankle no ecchymosis no deformity pain with rotation ppepb+2 pt is ambulatory ). Absent: abrasion, laceration, ecchymosis, deformity, crepidus, dislocation, erythema, anterior draw sign - Back Exam Back exam: Present: normal inspection - Neurological Exam Neurological exam: Present: alert, oriented X3 - Psychiatric Psychiatric exam: Present: normal affect, normal mood - Skin Skin exam: Present: warm, dry, intact, normal color. Absent: rash ED Course Vital Signs 03/13/18 07:14 Temperature 98.5 F Pulse Rate 107 H Respiratory 18 Rate Blood Pressure 141/80 O2 Sat by Pulse 99 Oximetry ED Lower Extremity MDM - Radiology Data Radiology results: report reviewed, image reviewed right ankle no fracture mild soft tissue swelling - Medical Decision Making this is left ankle strain, plan: jose , nsaids, muscle relaxants rice therapy, follow up with pcp in 2-3 days Critical care attestation.: If time is entered above; I have spent that time in minutes in the direct care of this critically ill patient, excluding procedure time. ED Disposition Clinical Impression: Ankle strain Qualifiers: Encounter type: initial encounter Laterality: right Qualified Code(s): S96.911A - Strain of unspecified muscle and tendon at ankle and foot level, right foot, initial encounter Disposition: TO HOME OR SELFCARE Is pt being admited?: No Does the pt Need Aspirin: No Condition: Good Instructions: Ankle Exercises (GEN), Ankle Sprain (ED) Prescriptions: Cyclobenzaprine [Flexeril] 10 mg PO BID PRN #20 tablet PRN Reason: Muscle Spasm Ibuprofen [Motrin 800 MG tab] 800 mg PO Q8HR PRN #30 tablet PRN Reason: pain Referrals: [facility] [Outside] - 3-5 Days Forms: Work/School Release Form(ED) Time of Disposition: 09:36
--- NOTE | 2018-03-13 09:11 | XRay Report ---
RIGHT ANKLE RADIOGRAPHS INDICATION: Fall. COMPARISON: 12/05/2016. FINDINGS: AP, lateral and oblique right ankle radiographs again demonstrate intact mortise and talar dome contour. Stable malleoli, including approximately 0.5 cm degenerative or old posttraumatic ossific density inferior to the medial malleolus. Stable plantar calcaneal spur. Predominantly lateral and anterior ankle soft tissue swelling previously appears improved. CONCLUSION: No acute right ankle bony abnormality with degenerative changes again noted, as described. Please correlate. Thank you for the opportunity to participate in this patient's care.
== END 2018-03-13 09:41 | disposition home or self-care (01) ==
LOC: ED 07:12
DX: S96.911A Strain of unspecified muscle and tendon at ankle and foot level, right foot, initial encounter (principal); I10 Essential (primary) hypertension; E11.9 Type 2 diabetes mellitus without complications; G43.909 Migraine, unspecified, not intractable, without status migrainosus; F41.9 Anxiety disorder, unspecified; D64.9 Anemia, unspecified; Z88.6 Allergy status to analgesic agent; X50.1XXA Overexertion from prolonged static or awkward postures, initial encounter; Y93.89 Activity, other specified; Y99.8 Other external cause status; Y92.481 Parking lot as the place of occurrence of the external cause
CPT/HCPCS: 99283